=== PATIENT | female | born 1960 | race Caucasian/White ===

== ENCOUNTER 2023-08-30 11:44 | Emergency (ER) | payer BC, SELFPAY ==
[2023-08-30] VITALS (18 sets, daily range): BP systolic 109–139; BP diastolic 62–76; PULSE 53–61; RESP 20; TEMP 36.4; O2SAT 90–100; BMI 39.0
--- NOTE | 2023-08-30 12:20 | CRLHL7_ITS ---
For Patients: As a result of the Century Cures Act, medical imaging exams and procedure reports are released immediately into your electronic medical record. You may view this report before your referring provider. If you have questions, please contact your health care provider. Indication: Chest Pain Comparison: Two-view chest January 31, 2020 Technique: PA and lateral views of the chest Findings: There is no focal consolidation, effusion, or pneumothorax. The cardiomediastinal silhouette is within normal limits. The bony thorax is grossly intact. Impression: No acute cardiopulmonary abnormality. Dictated by Trav Raza MD @ 08/30/2023 2:05:57 PM (Electronically Signed)
[2023-08-30 12:42] LABS: Chloride* 109 mmol/L (96-114); Potassium* 4.2 mmol/L (3.6-5.1); Sodium* 138 mmol/L (135-149)
[2023-08-30 12:45] LABS: Anion Gap 7 mEq/L (7-15); Blood Urea Nitrogen* 11 mg/dL (7-30); Carbon Dioxide* 22 mmol/L (20-32); Creatinine* 0.6 mg/dL (0.5-1.5); Est. Creatinine Clearance* 93.34; Estimated Glomerular Filt Rate 103 ml/min
[2023-08-30] MEDS: LORazepam 2 MG/ML inj 1 MG IVP (12:45)
[2023-08-30 12:46] LABS: Glucose* 144 mg/dL (60-115)
[2023-08-30 12:48] LABS: D Dimer Quantitative* 0.28 ug/ml (0.00-0.50)
[2023-08-30 12:49] LABS: Basophils Absolute Auto 0.03 K/uL (0.00-0.30); Basophils Percent Auto 0.3 % (0.0-3.0); Eosinophils Absolute Auto 0.13 K/uL (0.00-0.50); Eosinophils Percent Auto 1.4 % (0.0-7.0); Hematocrit 43.5 % (33.0-51.0); Hemoglobin* 13.8 gm/dL (12.0-16.0); Immature Granulocytes Abs Auto 0.01 K/uL (0.00-0.30); Immature Granulocytes Pct Auto 0.1 %; Lymphocytes Absolute Auto 2.11 K/uL (0.90-2.90); Lymphocytes Percent Auto 23.1 % (20-44); Mean Corpuscular HGB Conc 32 gm/dL (32-36); Mean Corpuscular Hemoglobin 30 pg (26-34); Mean Corpuscular Volume 93 fL (80-100); Monocytes Percent Auto 3.1 % (0.0-11.0); Neutrophils Absolute Auto 6.58 K/uL (1.7-7.0); Platelet Count* 386 K/uL (140-440); Red Blood Count 4.67 m/uL (4.00-5.20); White Blood Count* 9.14 K/uL (4.50-11.00)
[2023-08-30 12:52] LABS: Slide Review Reflex No
--- NOTE | 2023-08-30 12:55 | ED.GENADULT ---
HPI - General Adult General Date Seen: 08/30/23 Chief complaint: Chest Pain Stated complaint: L side numb, dizziness, chest pain Time Seen by Provider: 08/30/23 11:50 History of Present Illness HPI narrative: This is a pleasant 62-year-old female who is accompanied to the ER today by her mother for evaluation of chest pain. Patient initially reports that she woke up at about 11 this morning. She woke up with chest pain that is located to the left upper chest and radiates down her left arm. The pain is not really radiate up to her jaw or through to her back. It feels like a pressure or an ache. No other definite symptoms. No palpitations. No trouble breathing. No fainting. No swelling in her legs. When asked her about other recent chest pain she says that she was in an ER in [place] last week for chest pain and had an negative workup. Apparently her EKG showed possibly a bundle branch block, but that was indeterminate and she stated the hospital for several hours getting blood tests that were normal. Patient says she has not really had any chest pains between then and now but actually her mother says she has been having some intermittent chest pain off and on through the week. Mother also endorses the patient has been extremely anxious and tearful lately. When asked the patient about this she says that she is stressed out. She is initially very vague. Later on she is able to confide that she is actually very stressed about her living situation. She has been bouncing between houses lately. Her current living situation of known is not good. She feels like it is a slum. She is unhappy there. She is having conflict with her landlord. Related Data Home Medications Medication Instructions Recorded Confirmed albuterol sulfate 90 mcg/actuation 2 puff inhalation Q6H PRN wheezing 08/30/23 08/30/23 aerosol inhaler (Ventolin HFA) atorvastatin 10 mg tablet 10 mg PO DAILY 08/30/23 08/30/23 fluoxetine 20 mg capsule 40 mg PO DAILY 08/30/23 08/30/23 propranolol 20 mg tablet 20 mg PO BID 08/30/23 08/30/23 Allergies Allergy/AdvReac Type Severity Reaction Status Date / Time Sulfa (Sulfonamide Allergy Intermediate Verified 08/30/23 11:57 Antibiotics) milk Allergy Mild Verified 08/30/23 11:57 apple Allergy Verified 08/30/23 11:57 megestrol [From Megace] Allergy Verified 08/30/23 11:57 cilantro Allergy Mild Uncoded 08/30/23 11:57 PFSH PFSH Social History Smoking Status: Former smoker Do you use any of these nicotine containing products: None Second hand tobacco smoke exposure: Yes How often do you have a drink containing alcohol: monthly or less How many standard drinks containing alcohol do you have on a typical day: 1 or 2 How often do you have six or more drinks on one occasion: Never AUDIT-C Alcohol total score: 1 Non-prescribed substance use: denies use service: No Exam Const: Vital Signs, click to edit/add: Vital Signs - 24 hr 08/30/23 11:58 08/30/23 12:53 08/30/23 13:00 Temperature 97.6 F Pulse Rate 61 60 Pulse Rate [Pulse Oximeter] 60 Respiratory Rate 20 Blood Pressure Blood Pressure [Le ft Upper Arm] 139/76 Pulse Oximetry 100 93 92 Oxygen Delivery Me thod Room Air 08/30/23 13:05 08/30/23 13:15 08/30/23 13:30 Temperature Pulse Rate 60 59 L 59 L Pulse Rate [Pulse Oximeter] Respiratory Rate Blood Pressure Blood Pressure [Le ft Upper Arm] Pulse Oximetry 90 91 90 Oxygen Delivery Me thod 08/30/23 13:35 08/30/23 13:45 08/30/23 13:52 Temperature Pulse Rate 56 L 55 L Pulse Rate [Pulse Oximeter] Respiratory Rate Blood Pressure Blood Pressure [Le ft Upper Arm] 111/73 Pulse Oximetry 91 92 Oxygen Delivery Me thod 08/30/23 13:53 08/30/23 13:54 08/30/23 14:00 Temperature Pulse Rate 56 L 57 L 53 L Pulse Rate [Pulse Oximeter] Respiratory Rate Blood Pressure 111/73 Blood Pressure [Le ft Upper Arm] Pulse Oximetry 95 95 93 Oxygen Delivery Me thod 08/30/23 14:01 08/30/23 14:15 08/30/23 14:30 Temperature Pulse Rate 55 L 58 L 55 L Pulse Rate [Pulse Oximeter] Respiratory Rate Blood Pressure 109/65 Blood Pressure [Le ft Upper Arm] Pulse Oximetry 93 97 94 Oxygen Delivery Me thod 08/30/23 14:31 08/30/23 14:45 08/30/23 15:02 Temperature Pulse Rate 58 L 56 L Pulse Rate [Pulse Oximeter] Respiratory Rate Blood Pressure 117/66 128/62 Blood Pressure [Le ft Upper Arm] Pulse Oximetry 95 97 Oxygen Delivery Me thod Course Vital Signs Vital signs: Initial Vital Signs Temperature 97.6 F 08/30/23 11:58 Temperature Source Temporal Artery Scan 08/30/23 11:58 Pulse Rate 60 08/30/23 11:58 Pulse Rhythm Regular 08/30/23 11:58 Respiratory Rate 20 08/30/23 11:58 Blood Pressure 139/76 08/30/23 11:58 Blood Pressure Mean 97 08/30/23 11:58 Blood Pressure Position Supine 08/30/23 11:58 Pulse Oximetry 100 08/30/23 11:58 Oxygen Delivery Method Room Air 08/30/23 11:58 Vital Signs Temperature 97.6 F 08/30/23 11:58 Pulse Rate 60 08/30/23 11:58 Respiratory Rate 20 08/30/23 11:58 Blood Pressure 139/76 08/30/23 11:58 Pulse Oximetry 100 08/30/23 11:58 Oxygen Delivery Method Room Air 08/30/23 11:58 Temperature 97.6 F 08/30/23 11:58 Pulse Rate 56 L 08/30/23 14:45 Respiratory Rate 20 08/30/23 11:58 Blood Pressure 128/62 08/30/23 15:02 Pulse Oximetry 97 08/30/23 14:45 Oxygen Delivery Method Room Air 08/30/23 11:58 Medical Decision Making MDM Narrative Medical decision making narrative: This patient presents to the ER today for evaluation of chest pain. Differential was broad. No evidence of palpitations, syncope or other cardiac dysrhythmia. We considered possible ACS, however workup with EKG and troponin is negative. Given time since onset of symptoms, we did check serial troponins which are both normal. EKG shows no evidence for pericarditis. Clinical presentation not suggestive of myocarditis. Chest x-ray shows no evidence for pneumonia, pneumothorax, pulmonary edema, pleural effusion, rib fracture, cardiomegaly. Mediastinum is normal on the x-ray. The patient has no ripping or tearing pain through to the back and has symmetric pulses on exam, no other acute neuro findings so I doubt aortic dissection. Risk of radiation and contrast exposure would outweigh the benefit of CT angiogram. We considered PE for this patient. She is low risk. Screening D-dimer is normal so will hold off on CT PIP No wheezing or bronchospasm to suggest COPD/asthma. No signs of chest wall cellulitis, shingles, injury. Ultimately, it seems like the patient's symptoms are probably being driven by anxiety and panic attacks. She was seen by [facility]. They were able to determine that a lot of her anxieties being triggered by her living situation. [facility] was able to arrange a crisis housing bed for the patient ([facility] Patient go there and have a safe place to stay. They will also be able to arrange outpatient mental health treatment for the patient when she arrives there. Due to regulatory problems were not able to transport the patient to [place] by EMS. She will have to go by her own private car. She is reluctant to go because down like driving at night but she is able to drive at night if necessary. She and her family will get to the crisis housing in [place] by private car tonight. With reasonable clinical confidence, I think the patient is safe for outpatient follow up. Discussed return precautions. Questions answered. Patient voices comfort with the plan. Lab Data Labs: Lab Results 08/30/23 08/30/23 Range/Units 12:15 14:40 WBC 9.14 (4.50-11.00) K/uL RBC 4.67 (4.00-5.20) m/uL Hgb 13.8 (12.0-16.0) gm/dL Hct 43.5 (33.0-51.0) % MCV 93 (80-100) fL MCH 30 (26-34) pg MCHC 32 (32-36) gm/dL RDW Coeff of Shante 13.0 (11.5-15.5) % Plt Count 386 (140-440) K/uL Neut % (Auto) 72.0 (42.0-72.0) % Lymph % (Auto) 23.1 (20-44) % [place] % (Auto) 3.1 (0.0-11.0) % Eos % (Auto) 1.4 (0.0-7.0) % Baso % (Auto) 0.3 (0.0-3.0) % Neut # (Auto) 6.58 (1.7-7.0) K/uL Lymph # (Auto) 2.11 (0.90-2.90) K/uL [place] # (Auto) 0.30 (0.00-0.90) K/UL Eos # (Auto) 0.13 (0.00-0.50) K/uL Baso # (Auto) 0.03 (0.00-0.30) K/uL Abs Immat Gran (auto) 0.01 (0.00-0.30) K/uL Imm/Tot Granulo (auto) 0.1 % D-Dimer Quant (PE/DVT) 0.28 (0.00-0.50) ug/ml Sodium 138 (135-149) mmol/L Potassium 4.2 (3.6-5.1) mmol/L Chloride 109 (96-114) mmol/L Carbon Dioxide 22 (20-32) mmol/L Anion Gap 7 (7-15) mEq/L BUN 11 (7-30) mg/dL Creatinine 0.6 (0.5-1.5) mg/dL Estimated Creat Clear 93.34 Estimated GFR 103 ml/min Glucose 144 H (60-115) mg/dL Calcium 9.0 (8.4-10.6) mg/dL Troponin I < 0.01 L < 0.01 L (0.01-0.04) ng/mL Imaging Data Chest x-ray: Attestation: I have reviewed the pertinent imaging results. Radiologist's impression: Impression: No acute cardiopulmonary abnormality. ECG Data Attestation: I personally reviewed and interpreted this ECG as follows: Interpretation: Sinus bradycardia. Rate 57 MD 160 QRS axis : Normal axis. Left bundle-branch block pattern. QRS duration 138 ST segment/T wave: No ST segment elevation or depression by Sgarbossa criteria. She does have ST changes consistent with appropriate findings in left bundle-branch block QTc: 445 No previous EKGs available for comparison. Patient reports that she did have an EKG last week when she was in [place] with chest pain that also showed a bundle-branch block. Presumably then, her left bundle is not new. Discharge Plan Discharge Clinical Impression: Anxiety, Chest pain Patient Disposition: Home, Self-Care Condition: Stable Instructions: Chest Pain (DC), Panic Disorder (ED), Anxiety (ED) Additional Instructions: As we discussed, please go directly to the crisis custodial in [place]. Drive safely. The address for the [facility] is: [place] [address] Please call them when you leave to give them an estimated time. If you have any questions, you can ask them at that time also. Phone number: If you have any more episodes of chest pain or any other concerning symptoms, please return to your nearest ER . Please follow-up with your regular doctor for a blood pressure check in clinic within the next 2-3 weeks. Follow up with the mental health professionals as directed at the crisis Center. Prescriptions: No Action atorvastatin 10 mg tablet 10 mg PO DAILY albuterol sulfate [Ventolin HFA] 90 mcg/actuation HFA aerosol inhaler 2 puff inhalation Q6H PRN (Reason: wheezing) propranolol 20 mg tablet 20 mg PO BID fluoxetine 20 mg capsule 40 mg PO DAILY Follow Up/Referrals: Provider,Not a Local [Primary Care Provider] - Stand Alone Forms: [employer] Info Instructions
[2023-08-30 12:58] LABS: Troponin I* < 0.01 ng/mL (0.01-0.04)
[2023-08-30 15:43] LABS: Troponin I* < 0.01 ng/mL (0.01-0.04)
--- NOTE | 2023-09-01 13:11 | ED.NURSE ---
Patient called wondering if she was prescribed anything from her ED visit two days ago. Reviewed Dr. Pozo's dictation and discharge instructions, no medications prescribed at visit. Patient verbalizes understanding and denies any further questions or concerns.
== END 2023-08-30 17:24 | disposition home or self-care (01) ==
PROVIDERS: Emergency Provider Emergency Medicine
DX: R07.9 Chest pain, unspecified (principal); F41.9 Anxiety disorder, unspecified
CPT/HCPCS: 36415; 71046; 80048; 84484; 85025; 85379; 93005; 96374; 99284; 99285; J2060